=== PATIENT | female | born 1945 | race Caucasian/White ===

== ENCOUNTER 2018-07-13 09:43 | Outpatient (CLI) | payer MEDICARE | END 2018-07-13 09:44 | disposition home or self-care (01) | LOC: BICMAMMO 09:43 | PROVIDERS: ATTEND Family Medicine | DX: Z12.31 Encounter for screening mammogram for malignant neoplasm of breast (principal) | CPT/HCPCS: 77063; 77067 ==

== ENCOUNTER 2019-07-14 08:26 | Outpatient (CLI) | payer MEDICARE ==
--- NOTE | 2019-07-15 08:48 | MMO ---
Bilateral MAMMO Bilat Screen [facility]. CLINICAL HISTORY: Patient is 74 years old and is seen for screening. The patient has no family history of breast cancer. The patient has no personal history of cancer. The patient has a history of left Excisional Biopsy in 1989 - benign. VIEWS: The views performed were: bilateral craniocaudal with tomosynthesis and bilateral mediolateral oblique with tomosynthesis. FILMS COMPARED: The present examination has been compared to prior imaging studies performed at [facility] on 06/13/2015, 07/09/2016, 07/10/2017 and 07/13/2018. This study has been interpreted with the assistance of computer-aided detection. MAMMOGRAM FINDINGS: There are no suspicious masses, suspicious calcifications, or new areas of architectural distortion. IMPRESSION: THERE IS NO MAMMOGRAPHIC EVIDENCE OF MALIGNANCY. A ROUTINE FOLLOW-UP MAMMOGRAM IN 1 YEAR IS RECOMMENDED. THE RESULTS OF THIS EXAM WERE SENT TO THE PATIENT. ACR BI-RADS Category 1 - Negative MAMMOGRAPHY NOTE: 1. A negative mammogram report should not delay a biopsy if a dominant of clinically suspicious mass is present. 2. Approximately 10% to 15% of breast cancers are not detected by mammography. 3. Adenosis and dense breasts may obscure an underlying neoplasm. Reported by: Jarret ELLIOTT Electonically Signed: [id number]
== END 2019-07-14 08:27 | disposition home or self-care (01) ==
LOC: BICMAMMO 08:26
PROVIDERS: ATTEND Family Medicine
DX: Z12.31 Encounter for screening mammogram for malignant neoplasm of breast (principal)
CPT/HCPCS: 77063; 77067

== ENCOUNTER 2020-07-17 08:52 | Outpatient (CLI) | payer MEDICARE ==
--- NOTE | 2020-07-17 09:48 | MMO ---
Bilateral MAMMO Bilat Screen [facility]. CLINICAL HISTORY: Patient is 75 years old and is seen for screening. The patient has no family history of breast cancer. The patient has no personal history of cancer. The patient has a history of left Excisional Biopsy in 1989 - benign. VIEWS: The views performed were: bilateral craniocaudal with tomosynthesis and bilateral mediolateral oblique with tomosynthesis. FILMS COMPARED: The present examination has been compared to prior imaging studies performed at [facility] on 07/09/2016, 07/10/2017, 07/13/2018 and 07/14/2019. This study has been interpreted with the assistance of computer-aided detection. MAMMOGRAM FINDINGS: There are scattered fibroglandular densities. The focal asymmetry in the right subaerolar breast on MLO view appears more prominent. In the left breast, there are no suspicious masses, calcifications or areas of architectural distortion. IMPRESSION: FINDING IN THE RIGHT BREAST REQUIRES ADDITIONAL EVALUATION. SPOT COMPRESSION IS RECOMMENDED. AN ULTRASOUND EXAM IS RECOMMENDED. ADDITIONAL IMAGING. THE RESULTS OF THIS EXAM WERE SENT TO THE PATIENT. ACR BI-RADS Category 0 - Incomplete: Need additional imaging evaluation. [facility] will notify the patient of the need for additional imaging services. MAMMOGRAPHY NOTE: 1. A negative mammogram report should not delay a biopsy if a dominant of clinically suspicious mass is present. 2. Approximately 10% to 15% of breast cancers are not detected by mammography. 3. Adenosis and dense breasts may obscure an underlying neoplasm. Reported by: AHSAN NATHAN MD Electonically Signed: [id number]
== END 2020-07-17 08:53 | disposition home or self-care (01) ==
LOC: BICMAMMO 08:52
PROVIDERS: ATTEND Family Medicine
DX: Z12.31 Encounter for screening mammogram for malignant neoplasm of breast (principal); N64.89 Other specified disorders of breast; Z91.89 Other specified personal risk factors, not elsewhere classified
CPT/HCPCS: 77063; 77067

== ENCOUNTER 2020-07-18 13:00 | Outpatient (CLI) | payer MEDICARE ==
--- NOTE | 2020-07-18 13:56 | MMO ---
Right Breast MAMMO Unilat Diag [facility]. CLINICAL HISTORY: Patient is 75 years old and is seen for additional evaluation requested from prior study. The patient has no family history of breast cancer. The patient has no personal history of cancer. The patient has a history of left Excisional Biopsy in 1989 - benign. VIEWS: The views performed were: right craniocaudal spot compression with tomosynthesis; right mediolateral oblique spot compression with tomosynthesis; and right mediolateral with tomosynthesis. FILMS COMPARED: The present examination has been compared to prior imaging studies performed at [facility] on 07/13/2018, 07/14/2019, 07/17/2020 and 07/18/2020. This study has been interpreted with the assistance of computer-aided detection. MAMMOGRAM FINDINGS: There are scattered fibroglandular densities. Finding 1: There are stable benign appearing calcifications seen in the right breast. Finding 2: There is an asymmetry seen in the sub-areolar region of the right breast. unremarkable ultrasound IMPRESSION: FINDING 1: STABLE CALCIFICATIONS IN THE RIGHT BREAST ARE BENIGN. FINDING 2: ASYMMETRY IN THE RIGHT BREAST IS PROBABLY BENIGN. FOLLOW-UP IN 6 MONTHS IS RECOMMENDED. NOT SIGNIFICANTLY CHANGED ,SLIGHTLY MORE APPARENT THAN PREVIOUS THE RESULTS OF THIS EXAM WERE SENT TO THE PATIENT. ACR BI-RADS Category 3 - Probably benign finding - short interval follow-up suggested. [facility] will notify the patient of the need for additional imaging services. MAMMOGRAPHY NOTE: 1. A negative mammogram report should not delay a biopsy if a dominant of clinically suspicious mass is present. 2. Approximately 10% to 15% of breast cancers are not detected by mammography. 3. Adenosis and dense breasts may obscure an underlying neoplasm. Reported by: IGGY SALMON MD Electonically Signed: [id number]
--- NOTE | 2020-07-18 14:32 | ULT ---
RIGHT BREAST ULTRASOUND: Date: 07/18/2020 HISTORY: Asymmetry in the subareolar region of the right breast. FINDINGS: This area is evaluated with ultrasound. There is no evidence for solid or cystic mass, or overt archi tectural distortion. There is some asymmetric glandular tissue. No convincing evidence for solid or cystic mass. Asymmetric glandular tissue. Since the asymmetry has a slightly different appearance than prior studies, although is not significa ntly increased in size, I would recommend a 6 month follow-up short-term surveillance. IMPRESSION: BI-RADS Category 3 - Probably benign findings. A 6 month follow-up left unilateral diagnostic mammogr am is recommended for further assessment. Findings were discussed with the patient, who is in agreement. The facility will notify patient of need for additional imaging services. POS: OFF
== END 2020-07-18 13:01 | disposition home or self-care (01) ==
LOC: BICMAMMO 13:00
PROVIDERS: ATTEND Family Medicine
DX: R92.2 Inconclusive mammogram (principal); R92.1 Mammographic calcification found on diagnostic imaging of breast; N64.89 Other specified disorders of breast
CPT/HCPCS: 76642; 77065; G0279

== ENCOUNTER 2021-01-17 10:13 | Outpatient (CLI) | payer MEDICARE | END 2021-01-17 10:14 | disposition home or self-care (01) | LOC: BICMAMMO 10:13 | PROVIDERS: ATTEND Family Medicine | DX: R92.8 Other abnormal and inconclusive findings on diagnostic imaging of breast (principal) | CPT/HCPCS: 77065; G0279 ==

== ENCOUNTER 2021-07-19 08:33 | Outpatient (CLI) | payer MEDICARE | END 2021-07-19 08:34 | disposition home or self-care (01) | LOC: BICMAMMO 08:33 | PROVIDERS: ATTEND Family Medicine | DX: Z12.31 Encounter for screening mammogram for malignant neoplasm of breast (principal); Z91.89 Other specified personal risk factors, not elsewhere classified | CPT/HCPCS: 77063; 77067 ==

== ENCOUNTER 2022-07-22 07:55 | Outpatient (CLI) | payer MEDICARE | END 2022-07-22 07:56 | disposition home or self-care (01) | LOC: BICMAMMO 07:55 | PROVIDERS: ATTEND Family Medicine | DX: Z12.31 Encounter for screening mammogram for malignant neoplasm of breast (principal); Z91.89 Other specified personal risk factors, not elsewhere classified | CPT/HCPCS: 77063; 77067 ==

== ENCOUNTER 2023-06-05 09:29 | Outpatient (CLI) | payer MEDICARE | END 2023-06-05 09:30 | disposition home or self-care (01) | LOC: RAD 09:29 | PROVIDERS: ATTEND Podiatrist | DX: M79.672 Pain in left foot (principal); R60.0 Localized edema; M19.072 Primary osteoarthritis, left ankle and foot ==

== ENCOUNTER 2023-08-12 08:47 | Outpatient (CLI) | payer MEDICARE | END 2023-08-12 08:48 | disposition home or self-care (01) | LOC: BICMAMMO 08:47 | PROVIDERS: ATTEND Family Medicine | DX: Z12.31 Encounter for screening mammogram for malignant neoplasm of breast (principal); Z91.89 Other specified personal risk factors, not elsewhere classified | CPT/HCPCS: 77063; 77067 ==

== ENCOUNTER 2023-11-03 14:33 | Outpatient (CLI) | payer MEDICARE | END 2023-11-03 14:34 | disposition home or self-care (01) | LOC: BICMAMMO 14:33 | PROVIDERS: ATTEND Family Medicine | DX: M81.0 Age-related osteoporosis without current pathological fracture (principal); M85.851 Other specified disorders of bone density and structure, right thigh; M85.852 Other specified disorders of bone density and structure, left thigh | CPT/HCPCS: 77080 ==

== ENCOUNTER 2024-05-04 14:01 | Outpatient (CLI) | payer MEDICARE | END 2024-05-04 14:02 | disposition home or self-care (01) | LOC: BICRAD 14:01 | PROVIDERS: ATTEND Nurse Practitioner Family | DX: R59.0 Localized enlarged lymph nodes (principal); M85.611 Other cyst of bone, right shoulder; M19.011 Primary osteoarthritis, right shoulder | CPT/HCPCS: 36415; 80053; 80074; 83520; 83970; 84443; 85025; 86038; 86200; 86225; 86308; 86376; 86800; 87389 ==

== ENCOUNTER 2024-05-10 13:50 | Outpatient (CLI) | payer MEDICARE | END 2024-05-10 13:51 | disposition home or self-care (01) | LOC: ULT 13:50 | PROVIDERS: ATTEND Nurse Practitioner Family | DX: R59.0 Localized enlarged lymph nodes (principal); R22.1 Localized swelling, mass and lump, neck | CPT/HCPCS: 76536 ==

== ENCOUNTER 2024-09-28 09:59 | Outpatient (CLI) | payer MEDICARE | END 2024-09-28 10:00 | disposition home or self-care (01) | LOC: BICMAMMO 09:59 | PROVIDERS: ATTEND Family Medicine | DX: Z12.31 Encounter for screening mammogram for malignant neoplasm of breast (principal); Z91.89 Other specified personal risk factors, not elsewhere classified | CPT/HCPCS: 77063; 77067 ==